=== PATIENT | female | born 1985 ===

== ENCOUNTER 2018-10-26 00:51 | Emergency (ER) | payer OTHER ==
[2018-10-26 01:02] VITALS: TEMP 99.8
[2018-10-26] MEDS ORDERED: Promethazine/Cod 6.25mg-10mg/5ml Syr UD PO STA (01:29)
[2018-10-26] MEDS ORDERED: Promethazine/Cod 6.25mg-10mg/5ml Syr UD ONE (01:36)
[2018-10-26] MEDS ORDERED: Albuterol 0.083% Inhal Sol (2.5 mg/3 mL) UD ONE ×2 (01:37→01:39)
[2018-10-26] MEDS: Albuterol 0.083% Inhal Sol (2.5 mg/3 mL) UD INH SCH (01:38)
--- NOTE | 2018-10-26 02:40 | C.PDOC ---
History Of Present Illness 33 year old female presents with cough for the past 2 days with chest tightness and SOB. Patient has been taking OTC cough syrup with no relief. Denies runny nose, congestion, or fever. Time Seen by Provider: 10/26/18 01:19 Chief Complaint (Nursing): Cough, Cold, Congestion History Per: Patient History/Exam Limitations: no limitations Onset/Duration Of Symptoms: Days (2) Current Symptoms Are (Timing): Still Present Associated Symptoms: Cough, Other (Chest tightness, SOB). denies: Fever, Sinus Drainage, Nasal Congestion Recent travel outside of the [place]: No Past Medical History Reviewed: Historical Data, Nursing Documentation, Vital Signs Vital Signs: Last Vital Signs Temp 99.8 F H 10/26/18 00:56 Pulse 102 H 10/26/18 00:56 Resp 16 10/26/18 00:56 BP 123/80 10/26/18 00:56 Pulse Ox 100 10/26/18 00:56 Family History: States: Unknown Family Hx - Social History Hx Alcohol Use: Yes Hx Substance Use: No - Immunization History Hx Influenza Vaccination: Yes Hx Pneumococcal Vaccination: No Review Of Systems Constitutional: Negative for: Fever, Chills ENT: Negative for: Nose Discharge, Nose Congestion Cardiovascular: Negative for: Chest Pain, Palpitations Respiratory: Positive for: Cough, Shortness of Breath, Other (Chest tightness) Gastrointestinal: Negative for: Nausea, Vomiting Physical Exam - Physical Exam Appears: Non-toxic Skin: Normal Color, Warm Head: Atraumatic, Normacephalic Eye(s): bilateral: Normal Inspection Ear(s): Bilateral: Normal Nose: Normal Oral Mucosa: Moist Throat: Normal, No Erythema, No Exudate Neck: Normal, Supple Chest: Symmetrical, No Tenderness Cardiovascular: Rhythm Regular Respiratory: Decreased Breath Sounds, No Rales, Rhonchi, No Wheezing Neurological/Psych: Oriented x3, Normal Speech ED Course And Treatment O2 Sat by Pulse Oximetry: 100 (Room air) Pulse Ox Interpretation: Normal Progress Note: Albuterol nebulizer, promethazine w/ codiene, and prednisone administered. Patient is resting comfortably in no acute respiratory distress with clear breath sounds, vitals are stable, will discharge home with Rx and instructions to follow up with PMD. Disposition Counseled Patient/Family Regarding: Diagnosis, Need For Followup, Rx Given - Disposition Referrals: Rosenda Jj DO [Medical Doctor] - Disposition: HOME/ ROUTINE Disposition Time: 02:38 Condition: STABLE Additional Instructions: INCREASE PO FLUIDS' TAKE MEDICATIONS DIRECTED RETURN TO ER IF WORSE Prescriptions: Albuterol HFA [Ventolin HFA 90 mcg/actuation (8 g)] 2 puff IH [id number] #1 inhaler Benzonatate [Tessalon Perles] 200 mg PO TID #14 sgl Cetirizine HCl [Zyrtec] 10 mg PO DAILY #14 capsule predniSONE [Prednisone] 40 mg PO DAILY #8 tab Instructions: Upper Respiratory Infection (ED) Forms: [employer] ([place]ian), Work Excuse - Clinical Impression Clinical Impression: Upper respiratory infection - PA / 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 - Scribe Statement The provider has reviewed the documentation as recorded by the Scribe Ezequiel Tejeda All medical record entries made by the Scribe were at my direction and personally dictated by me. I have reviewed the chart and agree that the record accurately reflects my personal performance of the history, physical exam, medical decision making, and the department course for this patient. I have also personally directed, reviewed, and agree with the discharge instructions and disposition.
[2018-10-26 03:43] VITALS: BP 102/69; PULSE 104; RESP 22
[2018-10-26 04:45] VITALS: O2SAT 100
== END 2018-10-26 03:33 | disposition home or self-care (01) ==
LOC: C.ER 00:51
DX: J06.9 Acute upper respiratory infection, unspecified (principal)